=== PATIENT | female | born 1980 | race Caucasian/White ===

== ENCOUNTER 2024-10-02 10:36 | Emergency (ER) | payer BC ==
[~2024-10-02] VITALS: Ht 172.7 cm; Wt 81.6 kg
[2024-10-02 10:43] VITALS: TEMP 98.2
[2024-10-02] MEDS ORDERED: METOCLOPRAMIDE HCL 10 MG/2 ML VIAL ONE (10:56)
[2024-10-02] MEDS ORDERED: dexaMETHasone SOD PHOSPHATE 1 ML ONE (10:56)
[2024-10-02] MEDS ORDERED: IBUP-1955 PO (11:02)
[2024-10-02] MEDS: IV NS 0.9% 1,000 ML BAG IV ONE (11:10)
[2024-10-02] MEDS: dexaMETHasone SOD PHOSPHATE 10 MG/ML VIAL IV ONE (11:11)
[2024-10-02] MEDS: METOCLOPRAMIDE HCL 10 MG/2 ML VIAL IV ONE (11:13)
[2024-10-02 13:00] VITALS: BP 130/85; O2SAT 99
== END 2024-10-02 12:59 | disposition home or self-care (01) ==
LOC: ER 10:50
DX: R51.9 Headache, unspecified (principal); R11.2 Nausea with vomiting, unspecified; I10 Essential (primary) hypertension; J45.909 Unspecified asthma, uncomplicated; Z88.2 Allergy status to sulfonamides; Z60.2 Problems related to living alone
CPT/HCPCS: 99284; 96374; 96375; 96361; J1100; J1200; J2765; J7030